=== PATIENT | female | born 1995 | race Caucasian/White ===

== ENCOUNTER 2018-08-05 21:25 | Emergency (ER) | payer OTHER ==
[2018-08-05 21:41] VITALS: BP 103/64
[2018-08-05] MEDS ORDERED: Tetan/Diph/Pertus SYR(Tdap)* 0.5 ML SYR(BOOSTRIX) use SYR IM ONE (22:26)
[2018-08-05] MEDS ORDERED: Lidocaine 1%* 5 ML VIAL INJ ONE (22:26)
--- NOTE | 2018-08-05 22:29 | UC ---
Laceration HPI - HPI Summary HPI Summary: WHILE PLAYING FIELD HOCKEY TONIGHT A BALL STRUCK HER IN THE CHIN. PT SUSTAINED A LACERATION AND ALSO C/O MODERATE LEFT JAW PAIN WHICH HAS IMPROVED SINCE INITIAL INJURY. NOT UTD TETANUS. NO LOC. - History Of Current Complaint Chief Complaint: UCLaceration Stated Complaint: CHIN LACERATION Time Seen by Provider: 08/05/18 21:50 Hx Obtained From: Patient Hx Last Menstrual Period: 3-4 DAYS AGO Laceration Location: Face - CHIN Mechanism Of Injury: Blunt Trauma Onset/Duration: Sudden Onset, Lasting Hours, Still Present Severity: Moderate Pain Intensity: 2 Pain Scale Used: 0-10 Numeric - Allergies/Home Medications Allergies/Adverse Reactions: Allergies Allergy/AdvReac Type Severity Reaction Status Date / Time No Known Allergies Allergy Verified 08/05/18 21:41 Home Medications: Home Medications Ibuprofen [Advil Migraine] 400 mg PO Q8HR PRN 08/05/18 [History Confirmed ] PMH/Surg Hx/FS Hx/Imm Hx Previously Healthy: Yes - Surgical History Surgical History: Yes Surgery Procedure, Year, and Place: R ACL AUG 2014. [place] teeth - Family History Known Family History: Negative: Hypertension - Social History Alcohol Use: Weekly Substance Use Type: None Smoking Status (MU): Never Smoked Tobacco - Immunization History Most Recent Tetanus Shot: 2007 Review of Systems Constitutional: Negative Skin: Other - LACERATION CHIN Respiratory: Negative Cardiovascular: Negative Gastrointestinal: Negative Musculoskeletal: Arthralgia - LEFT JAW Neurological: Negative All Other Systems Reviewed And Are Negative: Yes Physical Exam Triage Information Reviewed: Yes Appearance: Well-Appearing, No Pain Distress, Well-Nourished Vital Signs: Initial Vital Signs Temp 98.7 F 08/05/18 21:35 Pulse 92 08/05/18 21:35 Resp 18 08/05/18 21:35 BP 103/64 08/05/18 21:35 Pulse Ox 100 08/05/18 21:35 Vital Signs Reviewed: Yes Eyes: Positive: Conjunctiva Clear ENT: Positive: Hearing grossly normal Neck: Positive: Supple, Nontender Respiratory: Positive: No respiratory distress, No accessory muscle use Cardiovascular: Positive: Pulses Normal Abdomen Description: Positive: Soft Musculoskeletal: Positive: No Edema, Other: - MINIMAL TENDERNESS LEFT TMJ. FULL ROM. NOT TENDER OVER MANDIBLE Neurological: Positive: Alert Psychological: Positive: Age Appropriate Behavior Skin: Positive: Other - 1 CM LINEAR LACERATION UNDER CHIN Laceration Repair - Laceration Repair 1 Description: Linear Laceration Size After Repair: Length (cm) - 1CM, Width (mm) - 0MM, Depth (mm) - 2MM Modified For Repair: No Type Injection: Local Anesthesia Used: 1.0% Lido Irrigation With Pressure Irrigation Device: Yes Closure Material: Sutures - 3 SIMPLE INTERRUPTED Closure Method: Single Layer Suture Of: Skin Suture Type: Prolene - 5-0 Laceration Course/Dx - Differential Dx - Laceration/Wound Provider Diagnoses: 1. LACERATION REPAIR CHIN. 2. TDAP BOOSTER Discharge - Sign-Out/Discharge Documenting (check all that apply): Patient Departure All imaging exams completed and their final reports reviewed: No Studies - Discharge Plan Condition: Stable Disposition: HOME Patient Education Materials: Laceration (ED) Referrals: No Primary Care Phys,NOPCP [Primary Care Provider] - Additional Instructions: KEEP DRESSINGS IN PLACE AND DRY FOR THE FIRST 24 HRS. THEN YOU MAY REMOVE THE DRESSING AND GENTLY CLEANSE WITH SOAP AND WATER. PAT DRY AND RE-BANDAGE. APPLY THIN LAYER ANTIBIOTIC OINTMENT UNDER BANDAGE FOR FIRST 3-4 DAYS ONLY. CHANGE BANDAGE DAILY AND NEEDED IF IT BECOMES SOILED OR WET. SEEK FOLLOW-UP IF YOU DEVELOP SPREADING REDNESS OF THE SKIN, PURULENT DRAINAGE, FEVER, INCREASED PAIN OR ANY OTHER CONCERNING SYMPTOMS. RETURN TO HAVE YOUR SUTURES REMOVED IN 10 DAYS CALL THE NUMBER BELOW FOR ASSISTANCE IN ESTABLISHING WITH A PCP An additional resource available to assist in finding the appropriate physician for your health care needs is [facility] ([facility]). You may contact them by calling [phone]. TETANUS IMMUNIZATION GIVEN (TDAP): You have been given an immunization against tetanus. Please record this in your records. In general, a booster is needed only once every 10 years. The tetanus shot protects against tetanus or "lockjaw," which is a complication of certain wound infections (the tetanus shot cannot protect against the actual infection). The immunization site may become warm and red due to local reaction. If this occurs, apply warm compresses and take aspirin or ibuprofen to reduce inflammation and discomfort. Return for evaluation if the reaction becomes severe. - Billing Disposition and Condition Condition: STABLE Disposition: Home
== END 2018-08-05 22:55 | disposition home or self-care (01) ==
LOC: UCEAST 21:25
DX: S01.81XA Laceration without foreign body of other part of head, initial encounter (principal); W21.09XA Struck by other hit or thrown ball, initial encounter; Y93.65 Activity, lacrosse and field hockey; Y92.328 Other athletic field as the place of occurrence of the external cause; Z23 Encounter for immunization
CPT/HCPCS: 12011; 90715; 99202; G0463